=== PATIENT | female | born 1985 | race Caucasian/White ===

== ENCOUNTER → 2016-03-15 | Outpatient (CLI) | payer OTHER ==
[~2016-03-15] MED LIST: MOTRIN800 MG PO; NORCO 5/3251 TABLET PO; ONCE DAILY1 EACH PO; ORTHO TRI-CY1 TABLE1 PO; TOPROL XL25 MG PO
== END | disposition home or self-care (01) ==
LOC: CDC 14:38
DX: Z01.810 Encounter for preprocedural cardiovascular examination (principal)
CPT/HCPCS: 93000

== ENCOUNTER 2016-03-18 08:23 | Day surgery (SDC) | payer OTHER ==
[~2016-03-18] VITALS: Ht 165.1 cm; Wt 95.9 kg
[~2016-03-18 08:23] MED LIST changes: -MOTRIN800 MG PO; -NORCO 5/3251 TABLET PO
[2016-03-18 08:54] VITALS: BP 170/80
[2016-03-18] MEDS ORDERED: NORCO 5/3251 TABLET PO (10:34)
[2016-03-18] MEDS ORDERED: MOTRIN800 MG PO (10:34)
[2016-03-18 11:33] VITALS: BP 169/81
[2016-03-18 12:05] VITALS: BP 145/79
== END 2016-03-18 12:06 | disposition home or self-care (01) ==
LOC: SDC
DX: D06.9 Carcinoma in situ of cervix, unspecified (principal); F17.200 Nicotine dependence, unspecified, uncomplicated
CPT/HCPCS: 88305; J0131; J1100; J1885; J2405; J3010

== ENCOUNTER 2016-09-09 06:45 | Day surgery (SDC) | payer OTHER ==
[~2016-09-09] VITALS: Ht 152.4 cm; Wt 104.7 kg
[~2016-09-09 06:45] MED LIST changes: +MOTRIN800 MG PO; +NORCO 5/3251 TABLET PO
[2016-09-09 07:31] VITALS: BP 133/93
[2016-09-09] MEDS ORDERED: LORTAB 5-325 M1 EACH PO (09:59)
[2016-09-09] MEDS ORDERED: MOTRIN800 MG PO (09:59)
[2016-09-09 10:48] VITALS: BP 135/87
[2016-09-09 11:20] VITALS: BP 138/88
== END 2016-09-09 11:35 | disposition home or self-care (01) ==
LOC: SDC 06:45
PROC: 0UBC7ZX Excision of Cervix, Via Natural or Artificial Opening, Diagnostic (ICD-10-PCS; principal; 2016-09-09)
DX: D06.9 Carcinoma in situ of cervix, unspecified (principal); E28.2 Polycystic ovarian syndrome; I10 Essential (primary) hypertension; E66.09 Other obesity due to excess calories; Z68.42 Body mass index [BMI] 45.0-49.9, adult; F17.210 Nicotine dependence, cigarettes, uncomplicated; Z80.3 Family history of malignant neoplasm of breast; Z82.49 Family history of ischemic heart disease and other diseases of the circulatory system
CPT/HCPCS: 88305; 88307; J0330; J1100; J1885; J2250; J3010

== ENCOUNTER 2017-01-24 05:39 | Day surgery (SDC) | payer OTHER ==
[~2017-01-24] VITALS: Ht 165.1 cm; Wt 106.0 kg
[~2017-01-24 05:39] MED LIST changes: +LORTAB 5-325 M1 EACH PO
[2017-01-24 06:38] VITALS: BP 129/89
[2017-01-24 11:45] VITALS: BP 139/80
[2017-01-24 14:40] LABS: HEMATOCRIT 41.9 % (36.0-46.0); MCV 90.7 FL (83-99)
[2017-01-24 15:58] VITALS: BP 137/97
[2017-01-24 19:36] VITALS: BP 131/80
[2017-01-24 23:32] VITALS: BP 128/70
[2017-01-25 03:42] VITALS: BP 131/79
[2017-01-25 05:36] LABS: HEMATOCRIT 39.2 % (36.0-46.0); MCHC 33.4 G/DL (30.0-36.0); MCV 89.9 FL (83-99); MEAN PLAT.VOLUME 10.8 uM^3 (9.5-12.4); PLATELET COUNT 266 K/uL (156-360); RBC DIS.WIDTH-CV 12.8 % (11.8-14.6); RBC DIS.WIDTH-SD 42.1 % (39-53); RED BLOOD COUNT 4.36 M/uL (3.80-5.20); WHITE BLOOD COUNT 20.8 K/uL (4.1-10.2)
[2017-01-25 06:00] LABS: ANION GAP 6 MEQ/L (2-14); CHLORIDE 111 MEQ/L (99-109); GFR ESTIMATE (CALCULATED) > 59 mL/min/; GLUCOSE 97 mg/dL (70-99); POTASSIUM 3.9 MEQ/L (3.7-5.4); SAMPLE HEMOLYSIS CHECK 0; SAMPLE ICTERIC CHECK 0; SAMPLE LIPEMIA CHECK 0; SODIUM 142 MEQ/L (136-147); UREA NITROGEN (BUN) 6 mg/dL (9-23)
[2017-01-25 07:20] VITALS: BP 140/95
[2017-01-25] MEDS ORDERED: ENDOCET 5-3251 EACH PO (09:54)
[2017-01-25] MEDS ORDERED: MOTRIN800 MG PO (09:54)
== END 2017-01-25 10:28 | disposition home or self-care (01) ==
LOC: SDC → 2SOUTH 10:30 → ENRESERV 10:36 → 2EAST 11:38
PROVIDERS: Obstetrics & Gynecology
PROC: 0UT94ZZ Resection of Uterus, Percutaneous Endoscopic Approach (ICD-10-PCS; principal; 2017-01-24)
PROC: 0UTC4ZZ Resection of Cervix, Percutaneous Endoscopic Approach (ICD-10-PCS; principal; 2017-01-24)
PROC: 0UT74ZZ Resection of Bilateral Fallopian Tubes, Percutaneous Endoscopic Approach (ICD-10-PCS; principal; 2017-01-24)
DX: D06.9 Carcinoma in situ of cervix, unspecified (principal); K66.0 Peritoneal adhesions (postprocedural) (postinfection); E28.2 Polycystic ovarian syndrome; I10 Essential (primary) hypertension; E66.9 Obesity, unspecified; Z68.38 Body mass index [BMI] 38.0-38.9, adult; F17.200 Nicotine dependence, unspecified, uncomplicated
CPT/HCPCS: 80048; 85014; 85018; 85027; 87086; 88304; 88307; G0378; J0131; J0690; J1100; J1170; J1885; J2250; J2270; J2405; J2710; J3010; J7120; S0020